=== PATIENT | male | born 1960 | race Caucasian/White ===

== ENCOUNTER 2024-04-03 13:06 | Emergency (ER) | payer OTHER ==
[~2024-04-03] VITALS: Ht 185.4 cm; Wt 97.5 kg
[~2024-04-03 13:06] MED LIST: AMLO5TAB4; ENAL2.5T70; HYDR25TA4; SIMV40TA2
[2024-04-03 13:52] LABS: CALCIUM, SERUM 8.9 mg/dL (8.5-10.1); CARBON DIOXIDE 26 mmol/L (21-32); CHLORIDE 101 mmol/L (98-107); GLUCOSE 140 mg/dL (74-106); POTASSIUM 3.8 mmol/L (3.5-5.1); SODIUM SERUM 136 mmol/L (136-145); UREA NITROGEN, BLOOD 21 mg/dL (7-18)
[2024-04-03 13:59] LABS: BASOPHILS % (AUTO) 0.2 % (0.0-2.0); EOSINOPHILS % (AUTO) 0.3 % (0.0-6.0); HEMATOCRIT 47 % (39-51); HEMOGLOBIN 16.1 g/dL (13.5-17.5); LYMPHOCYTES % (AUTO) 9.7 % (20.0-44.0); MEAN CORPUSCULAR HEMOGLOBIN 30 PG (26.0-33.0); MEAN CORPUSCULAR HGB CONC 35 g/dl (31.0-36.0); MEAN CORPUSCULAR VOLUME 85 fL (80-96); MONOCYTES # (AUTO) 0.3 K/uL (0.1-1.30); MONOCYTES % (AUTO) 3.1 % (2.0-12.0); NEUTROPHILS # (AUTO) 8.6 K/uL (1.8-8.9); NEUTROPHILS % (AUTO) 86.7 % (43.0-81.0); PLATELET COUNT (AUTO) 167 K/uL (150-450); RED BLOOD CELL COUNT(AUTO) 5.47 MIL/uL (4.5-6.0); RED CELL DISTRIBUTION WIDTH 13.5 % (11.5-15.0)
[2024-04-03] MEDS ORDERED: ASPIRIN EC 325 MG TABLET.DR PO ONE (14:04)
[2024-04-03] MEDS ORDERED: FAMOTIDINE (20 MG) 20 MG TABLET ONE (14:04)
[2024-04-03] MEDS: ASPIRIN EC 325 MG TABLET.DR PO ONE (14:06)
[2024-04-03] MEDS: FAMOTIDINE (20 MG) 20 MG TABLET PO ONE (14:06)
[2024-04-03] MEDS ORDERED: AMLO-213 PO (14:47)
[2024-04-03] MEDS ORDERED: ALLO300T2 PO (14:47)
[2024-04-03] MEDS ORDERED: LOSA50TA39 PO (14:47)
[2024-04-03] MEDS ORDERED: ATOR20TA PO (14:47)
[2024-04-03] MEDS: NITROGLYCERIN 0.4 MG/TAB BOTTLE SL ONE (15:20)
[2024-04-03] MEDS: ENOXAPARIN SODIUM 100 MG/ML DISP.SYRIN SQ ONE (18:00)
[2024-04-03 19:00] VITALS: TEMP 97.9
[2024-04-03 19:00] LABS: INR 1.25 (0.91-1.10); PARTIAL THROMBOPLASTIN TIME 23.5 SEC (24.3-34.3); PROTHROMBIN TIME 12.8 SECS (9.2-11.1)
[2024-04-03 22:02] VITALS: BP 129/83; O2SAT 97
== END 2024-04-03 23:02 | disposition short-term general hospital (02) ==
LOC: ER 13:13
DX: I21.4 Non-ST elevation (NSTEMI) myocardial infarction (principal); R11.10 Vomiting, unspecified; I10 Essential (primary) hypertension; E78.00 Pure hypercholesterolemia, unspecified; Z60.2 Problems related to living alone; Z20.822 Contact with and (suspected) exposure to COVID-19
CPT/HCPCS: 99291; 87426; 96372; 93005 ×2; 71045; 85025; 80048; 85610; 85730; 36415; 84484 ×2; J1650